=== PATIENT | female | born 1995 | race Two or more races ===

== ENCOUNTER 2022-02-04 17:46 | Emergency (ER) | payer OTHER ==
[~2022-02-04] VITALS: Ht 154.9 cm; Wt 59.4 kg
== END 2022-02-04 19:33 | disposition home or self-care (01) ==
LOC: ER 17:46
DX: S99.911A Unspecified injury of right ankle, initial encounter (principal); X58.XXXA Exposure to other specified factors, initial encounter; Y93.01 Activity, walking, marching and hiking; Y92.480 Sidewalk as the place of occurrence of the external cause